=== PATIENT | male | born 1970 | race Caucasian/White ===

== ENCOUNTER 2022-05-29 06:20 | Observation (INO) | payer OTHER ==
[~2022-05-29] VITALS: Ht 177.8 cm; Wt 81.7 kg
[2022-05-29 07:35] LABS: BASOPHILS ABSOLUTE AUTO 0.02 K/mm3 (0.00-0.23); BASOPHILS PERCENT AUTO 0 % (0-2); EOSINOPHILS ABSOLUTE AUTO 0.13 K/mm3 (0.00-0.68); EOSINOPHILS PERCENT AUTO 1 % (0-6); Hematocrit 39.4 % (37.0-53.0); IMMATURE GRAN ABSOLUTE AUTO 0.03 K/mm3 (0.00-0.10); IMMATURE GRAN PERCENT AUTO 0 % (0-1); LYMPHOCYTES ABSOLUTE AUTO 1.94 K/mm3 (0.84-5.20); LYMPHOCYTES PERCENT AUTO 21 % (21-46); MONOCYTES ABSOLUTE AUTO 1.35 K/mm3 (0.16-1.47); MONOCYTES PERCENT AUTO 14 % (4-13); Mean Corpuscular HGB Conc 35.5 g/dL (31.5-36.5); Mean Corpuscular Volume 90 fL (80-100); Mean Platelet Volume 9.8 fL (9.1-12.4); NEUTROPHILS ABSOLUTE AUTO 5.89 K/mm3 (1.96-9.15); NEUTROPHILS PERCENT AUTO 63 % (41-73); Platelet Count 166 K/mm3 (150-400); RDW Standard Deviation 39.8 fL (35.1-46.3); Red Blood Cell Count 4.37 M/mm3 (4.30-5.90); White Blood Cell Count 9.36 K/mm3 (4.00-11.30)
[2022-05-29 07:50] LABS: Bun/Creatinine Ratio 37.4 (12.0-20.0); Calcium, Blood 8.9 mg/dL (8.5-10.1); Creatinine, Blood 0.72 mg/dL (0.60-1.20); Potassium, Blood 3.6 mmol/L (3.5-5.5)
--- NOTE | 2022-05-29 14:02 | NUR ---
05/29/22 1402 Nadeem Hoff PT NOT ON ANY ANTIBIOTICS. NOT INDICATED AND CONFIRMED WITH DR MORALES.
--- NOTE | 2022-05-29 14:44 | NUR ---
WAKES EASILY TO VERBAOL STIMULI WHEN ASKED IF HE KNOWS WHERE HE IS HE SHAKES HEAD NO AND LAUGHS THEN APPEARS TO BE ASLEP
--- NOTE | 2022-05-29 15:16 | NUR ---
PATIENT BACK FROM OR, EATING ICE CHIPS AND POPSICLE NOW, POSSIBLE DISCHARGE HOME TODAY PER DR MOARLES, REPORTED POSSIBLE DISCHARGE TO DR CORDERO
== END 2022-05-29 17:51 | disposition home or self-care (01) ==
LOC: ER 06:20 → MEDS 06:21
PROVIDERS: Student in an Organized Health Care Education/Training Program; Surgery; ADMIT Family Medicine
PROC: 0DCQXZZ Extirpation of Matter from Anus, External Approach (ICD-10-PCS; principal; 2022-05-29 16:00)
DX: T18.5XXA Foreign body in anus and rectum, initial encounter (principal); X58.XXXA Exposure to other specified factors, initial encounter; F17.210 Nicotine dependence, cigarettes, uncomplicated; F32.A Depression, unspecified; F41.9 Anxiety disorder, unspecified
CPT/HCPCS: 36415; 74177; 80048; 85025; J1170; J2250; J2405; J2704; J3010; Q9967